=== PATIENT | female | born 1955 | race Caucasian/White ===

== ENCOUNTER 2018-03-17 19:22 | Inpatient (IN) | payer OTHER ==
[~2018-03-17] VITALS: Ht 154.9 cm; Wt 86.2 kg
[2018-03-17 19:25] VITALS: BP 162/121
[2018-03-17] MEDS ORDERED: ARGI4.5P3 PO (19:45)
[2018-03-17] MEDS ORDERED: ASCO500T93 PO (19:45)
[2018-03-17] MEDS ORDERED: FLONAS NS (19:45)
[2018-03-17] MEDS ORDERED: SYN.075 PO (19:45)
[2018-03-17] MEDS ORDERED: WARF3TAB PO (19:45)
[2018-03-17] MEDS ORDERED: PHEN177S30 PO (19:45)
[2018-03-17] MEDS ORDERED: ALBU3SOL83 IH (19:45)
[2018-03-17] MEDS ORDERED: ACET-2619 PO (19:45)
[2018-03-17] MEDS ORDERED: HUMSLIDE (19:45)
[2018-03-17] MEDS ORDERED: MELA5TAB5 PO (19:45)
[2018-03-17] MEDS ORDERED: AMIO200T5 PO (19:45)
[2018-03-17] MEDS ORDERED: CAR30 PO (19:45)
[2018-03-17] MEDS ORDERED: ZINC220C12 PO (19:45)
[2018-03-17] MEDS ORDERED: METO25TA PO (19:45)
[2018-03-17] MEDS ORDERED: FURO-570 PO (19:45)
[2018-03-17] MEDS ORDERED: AMIN887L PO (19:45)
[2018-03-17] MEDS ORDERED: LACT1CAP63 PO (19:45)
[2018-03-17] MEDS ORDERED: LEVOFLOXACIN 500 MG/D5W PREMIX 100 ML IV ONE (21:00)
[2018-03-17] MEDS ORDERED: metroNIDAZOLE 500 MG/NS PREMIX 100 ML IV ONE (21:00)
[2018-03-17] MEDS ORDERED: NACL 0.9% 500 ML IV SCH (21:00)
[2018-03-17] MEDS ORDERED: MORPHINE SULFATE 4 MG/ML SYR IVP ONE (21:00)
[2018-03-17] MEDS ORDERED: ONDANSETRON 4 MG/2 ML VIAL IVP ONE (21:00)
[2018-03-17 21:23] LABS: HEMATOCRIT 37.6 % (36-48); HEMOGLOBIN 12.2 g/dL (12.0-16.0); MEAN CORPUSCULAR HEMOGLOBIN 29 pg (27-31); MEAN CORPUSCULAR HGB CONC 33 g/dL (33-37); MEAN CORPUSCULAR VOLUME 88.8 fL (80-94); PLATELET COUNT (AUTO) 278 K/uL (140-450); RED BLOOD CELL COUNT(AUTO) 4.23 MIL/uL (4.20-5.40); RED CELL DISTRIBUTION WIDTH 16.2 % (11.6-13.7); WHITE BLOOD COUNT (AUTO) 12.1 K/uL (4.8-10.8)
[2018-03-17 21:35] LABS: ANION GAP 10.9 (8-16); CARBON DIOXIDE 29.5 mmol/L (21-32); CREATININE 0.9 mg/dL (0.6-1.3); POTASSIUM 3.4 mmol/L (3.5-5.1)
[2018-03-17 21:41] LABS: ALBUMIN 2.2 g/dL (3.4-5.0); TOTAL BILIRUBIN 0.5 mg/dL (0.0-1.0)
[2018-03-17] MEDS ORDERED: MORPHINE SULFATE 2 MG/ML SYR ONE (21:43)
[2018-03-17 21:53] LABS: LYMPHOCYTES % (MANUAL) 11 % (20-46); MONOCYTES % (MANUAL) 11 % (5-12)
[2018-03-17 23:25] LABS: APPEARANCE,URINE SL CLOUDY (CLEAR); BILIRUBIN,URINE NEGATIVE (NEGATIVE); BLOOD, URINE 3+ (NEGATIVE); COLOR,URINE YELLOW (YELLOW); LEUKOCYTE ESTERASE ,URINE 1+ (NEGATIVE); NITRITE, URINE NEGATIVE (NEGATIVE); UGLUCOSE NEGATIVE (NEGATIVE)
[2018-03-17 23:37] LABS: RBC,URINE 3-10 (FEW) /HPF (0-5); WBC,URINE 20-60 /HPF (0-5)
[2018-03-18] MEDS ORDERED: ONDANSETRON 4 MG/2 ML VIAL IVP PRN (00:55)
[2018-03-18] MEDS ORDERED: ZOLPIDEM 5 MG TAB PO PRN (00:55)
[2018-03-18] MEDS ORDERED: HYDROcodone/APAP 7.5/325 MG 1 TAB PO PRN (00:55)
[2018-03-18] MEDS ORDERED: ACETAMINOPHEN 325 MG TAB PO PRN ×2 (00:55→03:15)
[2018-03-18 01:40] LABS: PROTHROMBIN TIME 13.7 secs (10.8-13.4)
[2018-03-18 01:52] LABS: FREE T4 (FREE THYROXINE) 1.48 ng/dL (0.76-1.46); MAGNESIUM 1.7 mg/dL (1.8-2.4); PHOSPHORUS 3.4 mg/dL (2.5-4.9); THYROID STIMULATING HORMONE 5.06 uIU/mL (0.34-3.74)
[2018-03-18 02:00] VITALS: BP 141/65
[2018-03-18] MEDS ORDERED: MULT-153 PO (03:13)
[2018-03-18] MEDS ORDERED: HYDRAGUARD CREAM TP PRN (03:15)
[2018-03-18] MEDS ORDERED: FOAM DRESSING TP PRN (03:15)
[2018-03-18] MEDS ORDERED: ALGINATE DRESSING MC PRN (03:15)
[2018-03-18] MEDS ORDERED: PHENOL PO PRN (03:15)
[2018-03-18] MEDS ORDERED: DEXTROSE 50% 50 ML SYR IVP PRN (03:15)
[2018-03-18] MEDS ORDERED: INSULIN LISPRO SLIDING SCALE 100 UNITS/ML VIAL SUBQ PRN (03:15)
[2018-03-18] MEDS ORDERED: DEXT 5% / NACL 0.9% 500 ML IV SCH (03:45)
[2018-03-18] MEDS ORDERED: Z-GUARD PASTE TP PRN (04:45)
[2018-03-18] MEDS ORDERED: POTASSIUM CHLORIDE 10 MEQ TABER PO SCH (05:00)
[2018-03-18] MEDS ORDERED: POTASSIUM CHLORIDE 20% 40 MEQ/15 ML UDC GT SCH (05:15)
[2018-03-18] MEDS ORDERED: MAG SULF 2000 MG/WATER PREMIX 100 ML IV SCH (05:30)
[2018-03-18] MEDS: NACL 0.9% 1,000 ML IV SCH ×3 (05:42→22:03)
[2018-03-18] MEDS ORDERED: VANCOMYCIN 500 MG VIAL PO SCH (06:00)
[2018-03-18] MEDS ORDERED: WATER STERILE 20 ML MC ONE (06:02)
[2018-03-18] MEDS: DILTIAZEM 30 MG TAB PO SCH ×4 (06:25→21:07)
[2018-03-18] MEDS: LEVOTHYROXINE 0.075 MG TAB PO SCH (06:30)
[2018-03-18] MEDS: BLOOD GLUCOSE MONITORING 1 DEV DEV FS SCH ×4 (07:51→21:21)
[2018-03-18 08:00] VITALS: BP 137/65
[2018-03-18 08:31] LABS: CHOL/HDL RATIO 5.9 (1-4.5)
[2018-03-18] MEDS: ZINC SULF 220 MG CAP PO SCH (09:00)
[2018-03-18] MEDS: ASCORBIC ACID 500 MG TAB PO SCH ×2 (09:00→21:00)
[2018-03-18] MEDS ORDERED: NON-FORMULARY ITEM (Multivitamin (Multi-Vitamins) 1 TAB) PO SCH (09:00)
[2018-03-18] MEDS ORDERED: ASCORBATE SOD PO SCH (09:00)
[2018-03-18] MEDS ORDERED: NON-FORMULARY ITEM (Lactobacillus Acidophilus (Probiotic) 1 EACH) PO SCH (09:00)
[2018-03-18] MEDS: LACTOBACILLUS RHAMNOSUS GG 1 EACH CAP PO SCH (09:00)
[2018-03-18] MEDS ORDERED: PROTEIN HYDROLYS PO SCH (09:00)
[2018-03-18] MEDS ORDERED: FUROSEMIDE 40 MG TAB PO SCH (09:00)
[2018-03-18] MEDS ORDERED: VITE AC PO SCH (09:00)
[2018-03-18] MEDS ORDERED: AMINO ACIDS PO SCH (09:00)
[2018-03-18] MEDS: MULTIVITAMIN 1 TAB PO SCH (09:00)
[2018-03-18] MEDS ORDERED: ARGININE PO SCH (09:00)
[2018-03-18] MEDS ORDERED: POTASSIUM CHLORIDE 40 MEQ, LIDOCAINE MPF 1% - 5 mL VIAL 25 MG in NACL 0.9% 250 ML IV SCH (09:30)
[2018-03-18] MEDS: AMIODARONE 200 MG TAB PO SCH ×2 (09:45→21:55)
[2018-03-18] MEDS ORDERED: MORPHINE SULFATE 4 MG/ML SYR IVP PRN (09:45)
[2018-03-18] MEDS: METOPROLOL 25 MG TAB PO SCH ×2 (09:46→21:17)
[2018-03-18] MEDS: ALGINATE DRESSING MC SCH (09:48)
[2018-03-18] MEDS: FOAM DRESSING TP SCH (09:48)
[2018-03-18] MEDS: NACL 0.9% IRR 250 ML BOTTLE IR SCH (09:49)
[2018-03-18] MEDS ORDERED: LORazepam 2 MG/ML VIAL IM/IVP PRN (09:55)
[2018-03-18] MEDS ORDERED: HYDRAGUARD CREAM TP SCH (13:00)
[2018-03-18] MEDS: metroNIDAZOLE 500 MG/NS PREMIX 100 ML IV SCH ×2 (13:35→21:04)
[2018-03-18] MEDS: Z-GUARD PASTE TP SCH (13:36)
[2018-03-18 16:00] VITALS: BP 131/62
[2018-03-18] MEDS ORDERED: WARFARIN 1 MG TAB PO SCH ×2 (17:00)
[2018-03-18] MEDS: VANCOMYCIN 1,000 MG VIAL PO SCH (17:32)
[2018-03-18] MEDS: FLUTICASONE NASAL 50 MCG/ACTUATION 16 GM BTL NS SCH (17:33)
[2018-03-18 20:00] VITALS: BP 138/84
[2018-03-18] MEDS ORDERED: MELATONIN PO SCH (21:00)
[2018-03-19] MEDS: Z-GUARD PASTE TP SCH ×2 (01:34→13:23)
[2018-03-19] MEDS: metroNIDAZOLE 500 MG/NS PREMIX 100 ML IV SCH ×3 (04:27→21:56)
[2018-03-19] MEDS: VANCOMYCIN 1,000 MG VIAL PO SCH ×5 (06:11→23:32)
[2018-03-19] MEDS: LEVOTHYROXINE 0.075 MG TAB PO SCH (06:11)
[2018-03-19] MEDS: BLOOD GLUCOSE MONITORING 1 DEV DEV FS SCH ×4 (07:20→21:00)
[2018-03-19 08:00] VITALS: BP 111/60
[2018-03-19 08:15] LABS: HEMOGLOBIN 10.7 g/dL (12.0-16.0); MEAN CORPUSCULAR HEMOGLOBIN 29 pg (27-31); MEAN CORPUSCULAR HGB CONC 32 g/dL (33-37); MEAN CORPUSCULAR VOLUME 89.5 fL (80-94); PLATELET COUNT (AUTO) 280 K/uL (140-450); RED BLOOD CELL COUNT(AUTO) 3.69 MIL/uL (4.20-5.40); RED CELL DISTRIBUTION WIDTH 16.3 % (11.6-13.7); WHITE BLOOD COUNT (AUTO) 10.6 K/uL (4.8-10.8)
[2018-03-19 08:51] LABS: EOSINOPHILS % (MANUAL) 2 % (0-4); LYMPHOCYTES % (MANUAL) 13 % (20-46); MONOCYTES % (MANUAL) 9 % (5-12)
[2018-03-19] MEDS ORDERED: LACTOBACILLUS RHAMNOSUS GG 1 EACH CAP PO SCH (09:00)
[2018-03-19 09:05] LABS: CARBON DIOXIDE 27.7 mmol/L (21-32); CREATININE 0.8 mg/dL (0.6-1.3); POTASSIUM 3.7 mmol/L (3.5-5.1)
[2018-03-19 09:10] LABS: PROTHROMBIN TIME 19.2 secs (10.8-13.4)
[2018-03-19 09:12] LABS: MAGNESIUM 1.9 mg/dL (1.8-2.4); PHOSPHORUS 3.1 mg/dL (2.5-4.9)
[2018-03-19] MEDS: ALBUTEROL SULFATE/IPRATROPIU 3 ML SOL IH PRN (10:03)
[2018-03-19] MEDS: METOPROLOL 25 MG TAB PO SCH ×3 (10:03→21:43)
[2018-03-19] MEDS: AMIODARONE 200 MG TAB PO SCH ×2 (10:04→22:03)
[2018-03-19] MEDS: MULTIVITAMIN 1 TAB PO SCH (10:04)
[2018-03-19] MEDS: ASCORBIC ACID 500 MG TAB PO SCH ×2 (10:04→21:45)
[2018-03-19] MEDS: LACTOBACILLUS RHAMNOSUS GG 1 EACH CAP PO SCH (10:04)
[2018-03-19] MEDS: ZINC SULF 220 MG CAP PO SCH (10:05)
[2018-03-19] MEDS: NACL 0.9% IRR 250 ML BOTTLE IR SCH (10:06)
[2018-03-19] MEDS: NACL 0.9% 1,000 ML IV SCH (10:09)
[2018-03-19] MEDS: THERAHONEY GEL 42.5 GM TP SCH (13:00)
[2018-03-19] MEDS: DILTIAZEM 30 MG TAB PO SCH ×2 (13:23→21:44)
[2018-03-19] MEDS: HYDRAGUARD CREAM TP SCH (13:23)
[2018-03-19 16:00] VITALS: BP 111/60
[2018-03-19] MEDS ORDERED: WARFARIN 1 MG TAB PO SCH (17:00)
[2018-03-19] MEDS ORDERED: PHENOL/MENTHOL 177 ML BTL MM PRN (17:20)
[2018-03-19] MEDS: FLUTICASONE NASAL 50 MCG/ACTUATION 16 GM BTL NS SCH (17:52)
[2018-03-19 22:00] VITALS: BP 117/50
[2018-03-20] VITALS: BP 111/43
[2018-03-20] MEDS ORDERED: PIPERACILLIN/TAZOBACTAM 3.375 GM VIAL IV ONE ×2 (00:27→04:38)
[2018-03-20] MEDS: PIPER/TAZO 3.375GM/D5W PREMIX 50 ML IV SCH ×4 (00:43→17:21)
[2018-03-20] MEDS: HYDRAGUARD CREAM TP SCH ×2 (01:00→13:00)
[2018-03-20] MEDS: metroNIDAZOLE 500 MG/NS PREMIX 100 ML IV SCH ×3 (04:24→21:40)
[2018-03-20] MEDS: DILTIAZEM 30 MG TAB PO SCH ×3 (06:07→21:00)
[2018-03-20] MEDS: LEVOTHYROXINE 0.1 MG TAB PO SCH (06:08)
[2018-03-20] MEDS: VANCOMYCIN 1,000 MG VIAL PO SCH ×3 (06:09→18:09)
[2018-03-20] MEDS: BLOOD GLUCOSE MONITORING 1 DEV DEV FS SCH ×4 (06:48→20:32)
[2018-03-20 08:00] VITALS: BP 119/59
[2018-03-20] MEDS: HYDROCORTISONE 1% CRM 30 GM TUBE TP SCH (10:25)
[2018-03-20] MEDS: NACL 0.9% IRR 250 ML BOTTLE IR SCH (10:25)
[2018-03-20] MEDS: METOPROLOL 25 MG TAB PO SCH ×2 (11:11→21:41)
[2018-03-20] MEDS: NACL 0.9% 500 ML IV SCH ×3 (11:12→23:45)
[2018-03-20] MEDS: LACTOBACILLUS RHAMNOSUS GG 1 EACH CAP PO SCH (11:12)
[2018-03-20] MEDS: AMIODARONE 200 MG TAB PO SCH ×2 (11:12→21:40)
[2018-03-20] MEDS: ASCORBIC ACID 500 MG TAB PO SCH ×2 (11:12→21:40)
[2018-03-20] MEDS: MULTIVITAMIN 1 TAB PO SCH (11:12)
[2018-03-20] MEDS: ZINC SULF 220 MG CAP PO SCH (11:12)
[2018-03-20 11:52] LABS: HEMATOCRIT 32.2 % (36-48); HEMOGLOBIN 10.4 g/dL (12.0-16.0); MEAN CORPUSCULAR HEMOGLOBIN 29 pg (27-31); MEAN CORPUSCULAR HGB CONC 32 g/dL (33-37); MEAN CORPUSCULAR VOLUME 89.8 fL (80-94); PLATELET COUNT (AUTO) 300 K/uL (140-450); RED BLOOD CELL COUNT(AUTO) 3.59 MIL/uL (4.20-5.40); RED CELL DISTRIBUTION WIDTH 16.9 % (11.6-13.7); WHITE BLOOD COUNT (AUTO) 9.9 K/uL (4.8-10.8)
[2018-03-20 12:04] LABS: MAGNESIUM 1.9 mg/dL (1.8-2.4); PHOSPHORUS 3.7 mg/dL (2.5-4.9)
[2018-03-20 12:16] LABS: ANION GAP 13.6 (8-16); CREATININE 0.8 mg/dL (0.6-1.3); POTASSIUM 3.6 mmol/L (3.5-5.1)
[2018-03-20 13:58] LABS: LYMPHOCYTES % (MANUAL) 16 % (20-46)
[2018-03-20 13:59] LABS: BASOPHILS % (MANUAL) 0 % (0-2); EOSINOPHILS % (MANUAL) 5 % (0-4); MONOCYTES % (MANUAL) 12 % (5-12)
[2018-03-20 16:00] VITALS: BP 113/57
[2018-03-20] MEDS ORDERED: WARFARIN 1 MG TAB PO SCH (17:00)
[2018-03-20] MEDS: FLUTICASONE NASAL 50 MCG/ACTUATION 16 GM BTL NS SCH (17:21)
[2018-03-20] MEDS: THERAHONEY GEL 42.5 GM TP SCH (17:35)
[2018-03-20] MEDS: PHARMACY COMMENTS MC SCH (18:02)
[2018-03-20 20:00] VITALS: BP 109/60
[2018-03-21] VITALS: BP 126/68
[2018-03-21] MEDS: PIPER/TAZO 3.375GM/D5W PREMIX 50 ML IV SCH ×4 (00:12→18:07)
[2018-03-21] MEDS: PHARMACY COMMENTS MC SCH ×4 (00:13→18:07)
[2018-03-21] MEDS: VANCOMYCIN 1,000 MG VIAL PO SCH ×4 (00:13→18:07)
[2018-03-21] MEDS: HYDRAGUARD CREAM TP SCH ×2 (01:24→13:04)
[2018-03-21] MEDS: metroNIDAZOLE 500 MG/NS PREMIX 100 ML IV SCH ×3 (04:11→21:27)
[2018-03-21] MEDS: DILTIAZEM 30 MG TAB PO SCH ×3 (04:22→21:00)
[2018-03-21] MEDS: NACL 0.9% 1,000 ML IV SCH ×2 (04:47→18:07)
[2018-03-21] MEDS: LEVOTHYROXINE 0.1 MG TAB PO SCH (05:41)
[2018-03-21] MEDS: BLOOD GLUCOSE MONITORING 1 DEV DEV FS SCH ×4 (06:10→21:23)
[2018-03-21 07:15] LABS: ANION GAP 11.9 (8-16); CARBON DIOXIDE 26.6 mmol/L (21-32); CREATININE 0.7 mg/dL (0.6-1.3); POTASSIUM 3.5 mmol/L (3.5-5.1)
[2018-03-21 07:17] LABS: HEMATOCRIT 31.6 % (36-48); HEMOGLOBIN 10.2 g/dL (12.0-16.0); MEAN CORPUSCULAR HEMOGLOBIN 29 pg (27-31); MEAN CORPUSCULAR HGB CONC 32 g/dL (33-37); MEAN CORPUSCULAR VOLUME 89.6 fL (80-94); PLATELET COUNT (AUTO) 329 K/uL (140-450); RED BLOOD CELL COUNT(AUTO) 3.53 MIL/uL (4.20-5.40); RED CELL DISTRIBUTION WIDTH 16.8 % (11.6-13.7); WHITE BLOOD COUNT (AUTO) 8.8 K/uL (4.8-10.8)
[2018-03-21 07:21] LABS: MAGNESIUM 1.8 mg/dL (1.8-2.4); PHOSPHORUS 4.2 mg/dL (2.5-4.9)
[2018-03-21 07:57] LABS: LYMPHOCYTES % (MANUAL) 29 % (20-46); PROTHROMBIN TIME 37.8 secs (10.8-13.4)
[2018-03-21 07:58] LABS: EOSINOPHILS % (MANUAL) 2 % (0-4); MONOCYTES % (MANUAL) 12 % (5-12)
[2018-03-21 08:00] VITALS: BP 112/58
[2018-03-21] MEDS: HYDROCORTISONE 1% CRM 30 GM TUBE TP SCH (09:00)
[2018-03-21] MEDS: NACL 0.9% IRR 250 ML BOTTLE IR SCH (09:00)
[2018-03-21] MEDS: FOAM DRESSING TP SCH (09:00)
[2018-03-21] MEDS: METOPROLOL 25 MG TAB PO SCH ×2 (09:00→21:32)
[2018-03-21] MEDS: ALGINATE DRESSING MC SCH (09:00)
[2018-03-21] MEDS: AMIODARONE 200 MG TAB PO SCH ×2 (10:07→21:29)
[2018-03-21] MEDS: ZINC SULF 220 MG CAP PO SCH (10:08)
[2018-03-21] MEDS: ASCORBIC ACID 500 MG TAB PO SCH ×2 (10:08→21:29)
[2018-03-21] MEDS: LACTOBACILLUS RHAMNOSUS GG 1 EACH CAP PO SCH (10:08)
[2018-03-21] MEDS: MULTIVITAMIN 1 TAB PO SCH (10:08)
[2018-03-21] MEDS ORDERED: guaiFENesin 600 MG TABER PO SCH (12:00)
[2018-03-21] MEDS: ALBUTEROL SULFATE/IPRATROPIU 3 ML SOL IH PRN (12:57)
[2018-03-21] MEDS: THERAHONEY GEL 42.5 GM TP SCH (13:04)
[2018-03-21 16:00] VITALS: BP 115/50
[2018-03-21] MEDS: FLUTICASONE NASAL 50 MCG/ACTUATION 16 GM BTL NS SCH (17:00)
[2018-03-21 20:00] VITALS: BP 120/46
[2018-03-21] MEDS: guaiFENesin 600 MG TABER PO SCH (21:29)
[2018-03-22] VITALS: BP 124/43
[2018-03-22] MEDS: PIPER/TAZO 3.375GM/D5W PREMIX 50 ML IV SCH ×3 (00:24→12:06)
[2018-03-22] MEDS: VANCOMYCIN 1,000 MG VIAL PO SCH ×3 (00:25→12:07)
[2018-03-22] MEDS: PHARMACY COMMENTS MC SCH ×3 (00:25→12:11)
[2018-03-22] MEDS: HYDRAGUARD CREAM TP SCH (00:25)
[2018-03-22] MEDS: NACL 0.9% 1,000 ML IV SCH (01:02)
[2018-03-22] MEDS: metroNIDAZOLE 500 MG/NS PREMIX 100 ML IV SCH (04:28)
[2018-03-22] MEDS: DILTIAZEM 30 MG TAB PO SCH (04:29)
[2018-03-22 04:30] VITALS: BP 121/61
[2018-03-22] MEDS: LEVOTHYROXINE 0.1 MG TAB PO SCH (05:53)
[2018-03-22] MEDS: BLOOD GLUCOSE MONITORING 1 DEV DEV FS SCH ×2 (05:54→12:10)
[2018-03-22 06:53] LABS: PROTHROMBIN TIME 44.9 secs (10.8-13.4)
[2018-03-22 08:00] VITALS: BP 122/56
[2018-03-22] MEDS: guaiFENesin 600 MG TABER PO SCH (09:22)
[2018-03-22] MEDS: AMIODARONE 200 MG TAB PO SCH (09:24)
[2018-03-22] MEDS: HYDROCORTISONE 1% CRM 30 GM TUBE TP SCH (09:24)
[2018-03-22] MEDS: ZINC SULF 220 MG CAP PO SCH (09:25)
[2018-03-22] MEDS: MULTIVITAMIN 1 TAB PO SCH (09:25)
[2018-03-22] MEDS: ASCORBIC ACID 500 MG TAB PO SCH (09:25)
[2018-03-22] MEDS: LACTOBACILLUS RHAMNOSUS GG 1 EACH CAP PO SCH (09:25)
[2018-03-22] MEDS: METOPROLOL 25 MG TAB PO SCH (09:26)
[2018-03-22] MEDS: NACL 0.9% IRR 250 ML BOTTLE IR SCH (09:39)
[2018-03-22 10:06] LABS: HEMATOCRIT 32.5 % (36-48); HEMOGLOBIN 10.1 g/dL (12.0-16.0); MEAN CORPUSCULAR HEMOGLOBIN 28 pg (27-31); MEAN CORPUSCULAR HGB CONC 31 g/dL (33-37); MEAN CORPUSCULAR VOLUME 90.9 fL (80-94); PLATELET COUNT (AUTO) 392 K/uL (140-450); RED BLOOD CELL COUNT(AUTO) 3.58 MIL/uL (4.20-5.40); RED CELL DISTRIBUTION WIDTH 17.3 % (11.6-13.7); WHITE BLOOD COUNT (AUTO) 11.4 K/uL (4.8-10.8)
[2018-03-22] MEDS: ALBUTEROL SULFATE/IPRATROPIU 3 ML SOL IH PRN (10:11)
[2018-03-22 10:42] LABS: ANION GAP 10.7 (8-16); CARBON DIOXIDE 28.5 mmol/L (21-32); CREATININE 0.8 mg/dL (0.6-1.3); POTASSIUM 4.2 mmol/L (3.5-5.1)
[2018-03-22] MEDS ORDERED: Hydraguard TP (10:48)
[2018-03-22] MEDS ORDERED: SYN.075 PO (10:48)
[2018-03-22] MEDS ORDERED: ZOS3.375I IV (10:48)
[2018-03-22] MEDS ORDERED: GLUC-805 FS (10:48)
[2018-03-22] MEDS ORDERED: [UNRECOGNIZED DRUG - CODE] IV (10:48)
[2018-03-22] MEDS ORDERED: D50SYR IVP (10:48)
[2018-03-22] MEDS ORDERED: VANC125C12 PO (10:48)
[2018-03-22] MEDS ORDERED: GUAI-791 PO (10:48)
[2018-03-22] MEDS ORDERED: Alginate Dressing MC ×2 (10:48)
[2018-03-22] MEDS ORDERED: LACT1CAP63 PO (10:48)
[2018-03-22] MEDS ORDERED: Foam Dressing TP ×2 (10:48)
[2018-03-22 10:54] LABS: EOSINOPHILS % (MANUAL) 1 % (0-4); LYMPHOCYTES % (MANUAL) 20 % (20-46); MONOCYTES % (MANUAL) 9 % (5-12)
[2018-03-22 10:55] LABS: BASOPHILS % (MANUAL) 0 % (0-2)
== END 2018-03-22 13:00 | DRG 871 ==
LOC: MED 19:22 → MTU 03-18 00:54
PROVIDERS: ADMIT General Practice; ATTEND General Practice
DX: A41.9 Sepsis, unspecified organism (principal); L89.154 Pressure ulcer of sacral region, stage 4; E43 Unspecified severe protein-calorie malnutrition; J69.0 Pneumonitis due to inhalation of food and vomit; N17.0 Acute kidney failure with tubular necrosis; E87.1 Hypo-osmolality and hyponatremia; N39.0 Urinary tract infection, site not specified; A04.72 Enterocolitis due to Clostridium difficile, not specified as recurrent; I69.351 Hemiplegia and hemiparesis following cerebral infarction affecting right dominant side; D68.59 Other primary thrombophilia; J98.11 Atelectasis; J90 Pleural effusion, not elsewhere classified; B96.1 Klebsiella pneumoniae [K. pneumoniae] as the cause of diseases classified elsewhere; R21 Rash and other nonspecific skin eruption; L30.8 Other specified dermatitis; J45.909 Unspecified asthma, uncomplicated; E78.5 Hyperlipidemia, unspecified; M19.011 Primary osteoarthritis, right shoulder; M17.11 Unilateral primary osteoarthritis, right knee; K40.90 Unilateral inguinal hernia, without obstruction or gangrene, not specified as recurrent; K42.9 Umbilical hernia without obstruction or gangrene; E86.0 Dehydration; R32 Unspecified urinary incontinence; E03.9 Hypothyroidism, unspecified; I89.0 Lymphedema, not elsewhere classified; E11.42 Type 2 diabetes mellitus with diabetic polyneuropathy; I10 Essential (primary) hypertension; I48.91 Unspecified atrial fibrillation; E66.01 Morbid (severe) obesity due to excess calories; E87.6 Hypokalemia; E83.42 Hypomagnesemia; E11.21 Type 2 diabetes mellitus with diabetic nephropathy; Z68.35 Body mass index [BMI] 35.0-35.9, adult; Z71.3 Dietary counseling and surveillance; Z95.2 Presence of prosthetic heart valve; Z87.891 Personal history of nicotine dependence; Z85.3 Personal history of malignant neoplasm of breast; Z79.4 Long term (current) use of insulin; Z79.899 Other long term (current) drug therapy; Z95.4 Presence of other heart-valve replacement; Z90.11 Acquired absence of right breast and nipple; Z80.3 Family history of malignant neoplasm of breast; I69.320 Aphasia following cerebral infarction
CPT/HCPCS: 36415; 71045; 73030; 73560; 74018; 80048; 80053; 81001; 82150; 82948; 83036; 83690; 83735; 83880; 84100; 84439; 84443; 84484; 85025; 85610; 85730; 87040; 87070; 87081; 87086; 87186; 93005; 94640; 96365; 96367; 97161-GP; 99285; A4649; J0696; J1815; J1956; J2001; J2270; J2405; J2543; J3370; J3475; J3480; J3490; J7030; J7042; J7060; J7620; Q0092